=== PATIENT | female | born 1940 | race Caucasian/White ===

== ENCOUNTER 2017-06-20 14:05 | Observation (INO) | payer MEDICARE ==
[~2017-06-20] VITALS: Ht 160 cm; Wt 76.3 kg
--- NOTE | ~2017-06-20 | EKG ---
PATIENT: ONEYDA PHILLIP UNIT #: [id number] Ventricular Rate: 81 BPM Atrial Rate: 81 BPM P-R Interval: 146 ms QRS Duration: 68 ms Q-T Interval: 384 ms QTC Calculation(Bezet): 446 ms P Apison: 29 degrees Calculated R Apison: -55 degrees Calculated T Apison: 36 degrees Diagnosis Line: Normal sinus rhythm Diagnosis Line: Left axis deviation bse Diagnosis Line: Cannot rule out Inferior infarct , age Diagnosis Line: undetermined Diagnosis Line: Abnormal ECG Diagnosis Line: No previous ECGs available Diagnosis Line: Confirmed by KIARA SEN MD ([id number]) on 06/23/2017 Diagnosis Line: 1:52:32 PM INTERPRETING MD: MCKINLEY MICHAELS
--- NOTE | ~2017-06-20 | CT2 ---
[facility] A Service of [facility] RADIOLOGY TEXT RESULTS PATIENT: ONEYDA PHILLIP LOCATION: C5B 555-01 : 42 UNIT #: [id number] AGE: [address]: Ebonie Maldonado MD SEX: F ORDER DR: [id number] [facility] [address] [place] [place], [place] [address] [id number] I MR#: [id number] #: [id number] NAME: ONEYDA PHILLIP : 1940 SEX: F STUDY DATE/TIME: 06/20/2017 15:51 UNIT: C5 ROOM: [facility] STUDY DESCRIPTION: CT Abd and Pelv W Cont Attending Physician: Reena Lopez M.D. Ordering Physician: Hakan Love M.D. Primary Care Physician: No Primary Care Physician MEDICAL IMAGING REPORT This report is preliminary unless electronic signature is present EXAM Abdomen and pelvis CT with contrast 06/20/2017 INDICATIONS A 77-year-old female with nausea vomiting diarrhea 3 days, aching all over, lightheaded. TECHNIQUE Contrast-enhanced abdomen and pelvis CT was performed. We have no comparison studies. This CT exam was performed with one or more of the following radiation dose reduction techniques: automatic exposure control, adjustment of mA and/or kV according to patient size, and iterative reconstruction. FINDINGS CT abdomen: Lung bases are clear. No effusion. A small hiatal hernia. Aorta demonstrates atherosclerotic change. The spleen and right adrenal glands are normal. There are calcifications and small cysts associate with the left adrenal glands. In aggregate these measure up to 2.9 x 1.7 cm. 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 Liver demonstrates fatty infiltration. Gallbladder surgically absent. Incidental renal cysts. Kidneys are otherwise unremarkable. CT pelvis: Bladder unremarkable. Uterus within normal limits. No drainable fluid collection in the pelvis. There is diverticulosis of the colon, but no distinct CT evidence of acute diverticulitis. Appendix not identified. No secondary sign of appendicitis. There is a fat containing anterior abdominal wall hernia. No suspicious bone lesion. IMPRESSION [facility] A Service of [facility] RADIOLOGY TEXT RESULTS PATIENT: ONEYDA PHILLIP LOCATION: C5B 555-01 : 42 UNIT #: [id number] AGE: [address]: Ebonie Maldonado MD SEX: F ORDER DR: 1. No clearly acute process. No bowel obstruction drainable fluid collection or focal area inflammatory change. 2. Appendix not identified but no secondary sign of appendicitis. 3. Diverticulosis. 4. Small hiatal hernia. Dictated by... Chuckie Mcdaniels M.D. THIS IS AN ELECTRONICALLY VERIFIED REPORT Chuckie Mcdaniels M.D. at 06/21/2017 9:32 PM Sebastien TD: 06/21/2017 01:49 JOB #: [id number] MEDICAL IMAGING REPORT Page 1 of 1 COPY
--- NOTE | ~2017-06-20 | US6 ---
[facility] A Service of [facility] RADIOLOGY TEXT RESULTS PATIENT: ONEYDA PHILLIP LOCATION: [facility] 555 : 42 UNIT #: [id number] AGE: [address]: Ebonie Maldonado MD SEX: F ORDER DR: [id number] [place] [id number] [facility]. [place], [place] [address] [id number] I MR#: [id number] #: [id number] NAME: ONEYDA PHILLIP : 1940 SEX: F STUDY DATE/TIME: 06/20/2017 18:31 UNIT: [facility] ROOM: [facility] STUDY DESCRIPTION: US Abdominal Limited Attending Physician: Ebonie Maldonado M.D. Ordering Physician: Reena Lopez M.D. Primary Care Physician: Primary Care Physician No MEDICAL IMAGING REPORT This report is preliminary unless electronic signature is present EXAM Right upper quadrant ultrasound 06/20/2017 INDICATION Nausea, vomiting for 3 days, hepatitis, cholecystectomy. TECHNIQUE Sonographic imaging of the right upper quadrant was performed. Correlation is made with CT 06/20/2017. FINDINGS The pancreas was obscured by bowel gas and not seen or evaluated. There is fatty infiltration of the liver which measures 15.9 cm long axis. Liver otherwise unremarkable. The right kidney is nonobstructed and measures 11.5 cm long axis. Gallbladder surgically absent. Extrahepatic common bile duct measures 4 mm. Probable peripelvic cyst in the right kidney corresponding to cysts on CT. IMPRESSION 1. Surgical absence of the gallbladder. 2. Fatty infiltration of the liver. Dictated by... Chuckie Mcdaniels M.D. THIS IS AN ELECTRONICALLY VERIFIED REPORT Chuckie Mcdaniels M.D. at 06/21/2017 9:26 PM RACHEL/susie TD: 06/21/2017 13:53 JOB #: [id number] [facility] A Service [facility] RADIOLOGY TEXT RESULTS PATIENT: ONEYDA PHILLIP LOCATION: [facility] : 42 UNIT #: [id number] AGE: [address]: Ebonie Maldonado MD SEX: F ORDER DR: MEDICAL IMAGING REPORT Page 1 of 1 COPY
--- NOTE | ~2017-06-20 | CO ---
Unit #: [id number] #: [id number] Patient: ONEYDA CARLIN [id number] [address] [place], [place] [address] [id number] I MR#: [id number] NAME: ONEYDA CARLIN ROOM: 555 Age: 77 Sex: F Admission Date: 06/20/2017 : 1940 Attending Physician: Ebonie Maldonado M.D. Primary Care Physician: No Primary Care Physician Consultation Date: 06/22/2017 CONSULTATION REPORT REASON FOR CONSULTATION Abnormal LFTs. HISTORY OF PRESENT ILLNESS Ms. Carlin is a 77-year-old lady. She has been feeling sick since last Friday with nausea, vomiting, diarrhea, feeling sick. She has no passing out episodes. She is feeling much better now and has none of the above symptoms. She also was noted to have significantly abnormal LFTs, which are improving also. She has no previous history of liver disease. Denies any excessive vomiting. Denies any drinking and has never been told that she has any liver problems. She had gallbladder taken out long time ago. PAST MEDICAL HISTORY Noncontributory, status post cholecystectomy 15 years ago. SOCIAL HISTORY Nonsmoker and nonalcoholic. FAMILY HISTORY Noncontributory. ALLERGIES None. MEDICATIONS At home, none. REVIEW OF SYSTEMS A complete 10-point review of systems was done, which is unremarkable other than as mentioned above. PHYSICAL EXAMINATION VITAL SIGNS: Stable. Afebrile. GENERAL: No acute distress. HEENT: Pupils equal and reactive. Sclerae anicteric. Oral mucosa moist. NECK: No JVD. No lymphadenopathy. CHEST: Clear to auscultation bilaterally. CARDIOVASCULAR: Regular rate and rhythm. No murmurs. ABDOMEN: Soft, nontender, and nondistended. EXTREMITIES: Without clubbing, cyanosis, or edema. NEUROLOGIC: Intact. SKIN: Warm and dry. Unit #: [id number] #: [id number] Patient: ONEYDA CARLIN DIAGNOSTIC STUDIES LABORATORY RESULTS: AST and ALT of 362 and 740, significantly improved from yesterday, other LFTs are normal. CBC is completely normal. IMAGING STUDIES: CT abdomen shows no acute illness. Ultrasound shows fatty liver and cholecystectomy. ASSESSMENT AND PLAN The patient with acute hepatitis associated with nausea, vomiting, diarrhea looks like viral syndrome. Since then, numbers are improving. We will recommend supportive care and watching numbers closely. She is asymptomatic now and can be watched closely outpatient with serial LFTs . Hepatitis panel is pending at this time. We will review as reports become available. Thank you Dr. Lopez for this interesting consult. We will follow along. Dictated by... Soledad Pillai/nahid TD: 06/22/2017 17:48 JOB #: [id number] CONSULTATION REPORT Page 1 of 1 X Hamzah Abebe MD X CONSULTATION REPORT
--- NOTE | ~2017-06-20 | DS ---
Unit #: [id number] #: [id number] Patient: ONEYDA PHILLIP [id number] [address] [address] [id number] I MR#: [id number] NAME: ONEYDA PHILLIP ROOM: 555 Age: 77 Sex: F Admission Date: 06/20/2017 : 1940 Discharge Date: 06/22/2017 Attending Physician: Ebonie Maldonado M.D. Primary Care Physician: No Primary Care Physician DISCHARGE SUMMARY DISCHARGE DIAGNOSES 1. Acute viral hepatitis. Acute hepatitis panel pending at the time of dictation. 2. Diabetes mellitus type 2, new onset, uncontrolled. 3. Urinary tract infection with Escherichia coli. 4. Syncope, likely vasovagal. 5. Transaminitis secondary to acute viral hepatitis. 6. Hypertension. CONSULTATION Dr. Abebe. PROCEDURES None. LAB DATA Urine culture is growing E. coli. CT of the abdomen and pelvis shows no acute process. Ultrasound of the abdomen shows surgical absence of gallbladder. Fatty liver present. Hemoglobin A1c 8.9. WBC 5.9, hemoglobin 13.8, platelets 210. Liver enzymes shows AST 362, ALT 740. Troponins negative. ALLERGIES None. DISCHARGE MEDICATIONS 1. Zofran 4 mg q.6 p.r.n. nausea. 2. Diflucan 100 mg p.o. daily for 3 days. 3. Miconazole, apply topically. 4. NovoLog low dose sliding scale a.c. and h.s. 5. Keflex 500 p.o. 3x daily for 3 days. 6. Glyburide 2.5 p.o. b.i.d. HOSPITALIZATION COURSE 77-year-old admitted because of nausea, vomiting. 1. Acute viral hepatitis. Acute hepatitis panel is pending at the time of dictation. Patient is seen by Dr. Abebe. Currently tolerating Unit #: [id number] #: [id number] Patient: ONEYDA PHILLIP diet okay. No vomiting. Continue Zofran at home. The patient will see Dr. Abebe for followup for her acute hepatitis panel which was pending. 2. Diabetes mellitus type 2, new onset. Patient received sliding scale. Patient will be started on glyburide at home. Diabetic education. I will give sliding scale prescription. 3. Urinary tract infection with E. coli. Patient received Rocephin. Patient will be discharged on Keflex for 3 more days. 4. Yeast in urine, started on Diflucan. Continue with that for a few more days. Discharge home. Follow with family physician in one week time. channel marketing program manager to help with medications. Patient will have diabetic education. Dictated by... Soledad Potter/fritz TD: 06/22/2017 16:10 JOB #: [id number] DISCHARGE SUMMARY Page 1 of 1 X Ebonie Maldonado MD X DISCHARGE SUMMARY
--- NOTE | ~2017-06-20 | EKG ---
PATIENT: ONEYDA PHILLIP UNIT #: [id number] Ventricular Rate: 81 BPM Atrial Rate: 81 BPM P-R Interval: 146 ms QRS Duration: 68 ms Q-T Interval: 384 ms QTC Calculation(Bezet): 446 ms P Hurley: 29 degrees Calculated R Hurley: -55 degrees Calculated T Hurley: 36 degrees Diagnosis Line: Normal sinus rhythm Diagnosis Line: Left axis deviation Baseline wander Diagnosis Line: Cannot rule out Inferior infarct , age Diagnosis Line: undetermined Diagnosis Line: Abnormal ECG Diagnosis Line: No previous ECGs available Diagnosis Line: Reconfirmed by KIARA SEN MD ([id number]) on 06/23/2017 Diagnosis Line: 1:52:52 PM INTERPRETING MD: MCKINLEY MICHAELS
--- NOTE | ~2017-06-20 | HP ---
Unit #: [id number] #: [id number] Patient: ONEYDA PHILLIP [id number] [facility] [address]. [place], [place] [address] [id number] I MR#: [id number] NAME: ONEYDA PHILLIP ROOM: 98486 Age: 77 Sex: F Admission Date: 06/20/2017 : 1940 Attending Physician: Reena Lopez M.D. Primary Care Physician: No Primary Care Physician HISTORY AND PHYSICAL CHIEF COMPLAINT Chief complaint is nausea, vomiting, diarrhea. HISTORY OF PRESENT ILLNESS The patient is a 77-year-old female with no significant past medical history, who presented to the emergency department for evaluation of the above. The patient states that she has not been feeling well since June 18, 2017. She has had nausea, vomiting and diarrhea. She reports six to eight bouts of nonbloody emesis and four bouts of nonbloody diarrhea within the past 24 hours. She denies any abdominal pain, no fever, no cough. She has had mild rhinorrhea. She denies any shortness of breath, no chest pain, no change in her weight. She states that she does have urinary incontinence at baseline. She denies any new urinary symptoms. She also reports a syncopal episode yesterday. She denies feeling lightheaded prior to the episode. She states that she has had at least three episodes of syncope within the past month. She states that typically it occurs when she is "nervous" or when she has been emotional, specifically at funerals. In the emergency department, a CT of the abdomen and pelvis was done and showed nothing acute. Laboratory notable for findings concerning for urinary tract infection. AST and ALT are 1091 and 1197 respectively. Lipase is 20. She is being admitted to [facility] for evaluation and further treatment. She was given 1 L of normal saline as well as 4 mg of Zofran in the emergency department. PAST MEDICAL HISTORY 1. The patient denies hospitalizations within the past 10 years. 2. Cholecystectomy. SOCIAL HISTORY The patient lives with her son. She smokes a pack of cigarettes daily. She denies alcohol. 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 She typically walks without assistance. FAMILY HISTORY Family history is notable for her mother having tongue malignancy. ALLERGIES No known allergies. Unit #: [id number] #: [id number] Patient: ONEYDA PHILLIP HOME MEDICATIONS None. REVIEW OF SYSTEMS A complete review of systems is negative except as indicated in the HPI. The patient states that she took two [place] Plus tablets within the past 24 hours. She has also taken about six ibuprofen. She denies any Tylenol use. She denies any sick contacts. No recent travel or abnormal foods. The patient states that the nodule on her nose has been present for about five years. DIAGNOSTIC TESTS IMAGING: CT of the abdomen and pelvis shows nothing acute. LABORATORY: Urinalysis notable for 1+ leukocyte esterase, positive nitrite, 5 to 10 white blood cells, 1+ bacteria, yeast are present. Complete blood count notable for AST and ALT of 1091 and 1197 respectively, glucose is 222. Hemoglobin and hematocrit 16.2 and 48 respectively. PHYSICAL EXAMINATION VITAL SIGNS: Temperature is 97.5. Pulse 103. Respirations 16. Blood pressure 124/89. Oxygen saturation 97% on room air. GENERAL: The patient is a female who is awake and alert, in no acute distress. HEENT: The head is atraumatic. Mucous membranes are moist. NECK: Is supple. Trachea is midline. CARDIOVASCULAR: is regular rate and rhythm. LUNGS: Are clear to auscultation bilaterally with no increased work of breathing. ABDOMEN: is soft, nontender, with bowel sounds present in all four quadrants. She does have a reducible ventral hernia. EXTREMITIES: Are nontender with no pedal edema. NEURO: The patient is awake and alert. She follows commands. PSYCH: Mood and affect are normal. The patient is cooperative. SKIN: Of examined areas is warm and dry. The patient does have a nodule on the nose that is somewhat pearly with telangiectasias. ASSESSMENT The patient is a 77-year-old female with: 1. Acute hepatitis. The patient denies ever being told she has any kind of liver problem. 2. Syncope. I do not see that the patient has had an EKG. She has never had a cardiac workup, never had a stress test or a cardiac catheterization. 3. Urinary tract infection with no urine cultures in [facility] for comparison. 4. Hyperglycemia. The patient's glucose is 222. The patient has never been told she has diabetes. PLAN 1. Admit for observation to intermediate level. 2. N.p.o. until right upper quadrant ultrasound. 3. Normal saline at 75 mL an hour. 4. Bedrest. 5. Fall precautions. 6. Right upper quadrant ultrasound for further evaluation of elevated liver function tests. Unit #: [id number] #: [id number] Patient: ONEYDA PHILLIP 7. Hepatitis panel. 8. Consult Dr. Abebe regarding elevated liver function tests. 9. Two-D echo for further evaluation of syncope. 10. EKG and cardiac enzymes. 11. Orthostatics q. shift. 12. Fall precautions. 13. Urinalysis with culture and sensitivity. 14. Rocephin 1 g IV daily pending results of urine culture. 15. Fluconazole 200 mg p.o. daily. Again pending urine culture results. 16. Hemoglobin A1C. 17. Low dose sliding scale insulin with Accu-Cheks. 18. Repeat labs in the morning. 19. SCDs for DVT prophylaxis. 20. Additional workup and consultants based on above. Dictated by Reena Lopez M.D. BRISA/malinda TD: 06/20/2017 17:39 JOB #: [id number] HISTORY AND PHYSICAL Page 1 of 1 X Reena Lopez MD X HISTORY AND PHYSICAL
[2017-06-20 14:43] LABS: BASOPHIL# 0.1 X10e3 (0-0.3); BASOPHIL% 1.2 % (0-2.5); DIFF IND NO; EOSINOPHIL# 0.2 X10e3 (0-0.7); EOSINOPHIL% 3.3 % (0.0-7.0); HEMOGLOBIN 16.2 gm/dL (12.0-16.0); LYMPHOCYTE# 1.7 X10e3 (1.0-3.5); LYMPHOCYTE% 23.3 % (17.0-45.0); MEAN CELL VOLUME 85.4 FL (83-96); MEAN CORPUSCULAR HEMOGLOBIN 28.8 PG (28-34); MEAN CORPUSCULAR HGB CONC 33.7 g/dL (30-36); MEAN PLATELET VOLUME 8.7 FL (6.5-11.5); MONOCYTE# 0.2 X10e3 (0-1.0); MONOCYTE% 2.9 % (3.0-12.0); NEUTROPHIL# 4.9 X10e3 (1.5-7.1); NEUTROPHIL% 69.3 % (40-75); PLATELET COUNT 214 X10e3 (140-420); RED BLOOD COUNT 5.62 X10e (3.90-5.30); RED CELL DISTRIBUTION WIDTH 15.3 % (11.0-15.5); WHITE BLOOD COUNT 7.1 X10e3 (4.0-10.5)
[2017-06-20 15:19] LABS: ALBUMIN SERUM 4.1 g/dL (3.5-5.0); BILIRUBIN, DIRECT 0.3 mg/dL (0.0-0.2); BILIRUBIN,INDIRECT 0.4 mg/dL (0.0-0.9); BILIRUBIN,TOTAL 0.7 mg/dL (0.2-2.0); CREATININE SERUM 0.9 mg/dL (0.6-1.4); GLOM FILT RATE Estimated 62.6 mL/min (>60); POTASSIUM 3.6 mmol/L (3.5-5.1); PROTEIN TOTAL SERUM 7.7 g/dL (6.0-8.3)
[2017-06-20 16:22] LABS: URINE SOURCE CLEAN CATCH
[2017-06-20 16:32] LABS: URINE APPEARANCE CLEAR; URINE BILIRUBIN NEG (NEG); URINE BLOOD NEG (NEG); URINE COLOR YELLOW; URINE GLUCOSE NEG (NEG); URINE KETONE NEG (NEG); URINE LEUKOCYTE ESTERASE 1+ (NEG); URINE NITRATE POS (NEG); URINE PROTEIN NEG (NEG)
[2017-06-20 16:34] LABS: CULTURE INDICATED? YES; U HYALINE CASTS AUWI 0-2 /[LPF]; URINE BACTERIA AUWI 1+ (NEGATIVE); URINE SQUAMOUS EPITHELIAL CELL OCC /[HPF]
[2017-06-20] MEDS ORDERED: NO MEDICATIONS (16:42)
[2017-06-20 16:43] LABS: URINE YEAST PRESENT
[2017-06-20 20:01] LABS: %MB 6.2 % (0.0-4.0); MB 3.8 ng/ml
[2017-06-21 00:16] LABS: %MB 5.7 % (0.0-4.0); MB 3.8 ng/ml
[2017-06-21 06:35] LABS: BASOPHIL# 0.1 X10e3 (0-0.3); BASOPHIL% 1.3 % (0-2.5); EOSINOPHIL# 0.5 X10e3 (0-0.7); EOSINOPHIL% 8.5 % (0.0-7.0); HEMATOCRIT 41.9 % (35.0-45.0); LYMPHOCYTE# 2.1 X10e3 (1.0-3.5); LYMPHOCYTE% 36.3 % (17.0-45.0); MEAN CELL VOLUME 86.2 FL (83-96); MEAN CORPUSCULAR HEMOGLOBIN 28.5 PG (28-34); MEAN PLATELET VOLUME 9.1 FL (6.5-11.5); MONOCYTE# 0.2 X10e3 (0-1.0); NEUTROPHIL% 49.9 % (40-75); PLATELET COUNT 210 X10e3 (140-420); RED BLOOD COUNT 4.86 X10e (3.90-5.30); RED CELL DISTRIBUTION WIDTH 15.3 % (11.0-15.5); WHITE BLOOD COUNT 5.9 X10e3 (4.0-10.5)
[2017-06-21 07:07] LABS: CK TOTAL 58 IU/L (26-140)
[2017-06-21 07:28] LABS: ALBUMIN SERUM 3.1 g/dL (3.5-5.0); BILIRUBIN,TOTAL 0.7 mg/dL (0.2-2.0); BUN/CREATININE RATIO 16.25; CALCIUM SERUM 8.2 mg/dL (8.4-10.2); CREATININE SERUM 0.8 mg/dL (0.6-1.4); GLOM FILT RATE Estimated 72.2 mL/min (>60); POTASSIUM 4.1 mmol/L (3.5-5.1); PROTEIN TOTAL SERUM 5.9 g/dL (6.0-8.3)
[2017-06-21 07:32] LABS: HEMOGLOBIN 13.8 gm/dL (12.0-16.0)
[2017-06-21 07:33] LABS: DIFF IND NO
[2017-06-22] MEDS ORDERED: DIFLUCAN100 MG PO (14:28)
[2017-06-22] MEDS ORDERED: ACCUCHECK MACHINE (14:29)
[2017-06-22] MEDS ORDERED: ZOFRAN PO (14:29)
[2017-06-22] MEDS ORDERED: [UNRECOGNIZED DRUG - SUPPLY] (14:30)
[2017-06-22] MEDS ORDERED: GLYBURIDE2.5 MG PO (14:31)
[2017-06-22] MEDS ORDERED: NOVOLOG100 UNITS/ SUBQ (14:31)
[2017-06-24 22:59] LABS: HA AB IGM (HEPPAN) Nonreactive (()); HB CORE AB IGM (HEPPAN) Nonreactive (Nonreactive); HB S AG (HEPPAN) Nonreactive (Nonreactive); HEP C AB (HEPPAN) Nonreactive (Nonreactive); HEP C AB SIGNAL TO CUTOFF 0.01 ratio (<1.00)
== END 2017-06-22 15:24 | disposition home or self-care (01) ==
LOC: CED 14:05 → CEDOF 17:10 → CED 17:22 → CEDOF 17:22 → C5B 19:45
PROVIDERS: Emergency Medicine; Family Medicine
DX: B17.9 Acute viral hepatitis, unspecified (principal); I10 Essential (primary) hypertension; E11.65 Type 2 diabetes mellitus with hyperglycemia; N39.0 Urinary tract infection, site not specified; B96.20 Unspecified Escherichia coli [E. coli] as the cause of diseases classified elsewhere; R55 Syncope and collapse; F17.210 Nicotine dependence, cigarettes, uncomplicated; Z79.4 Long term (current) use of insulin; Z79.899 Other long term (current) drug therapy; Z90.49 Acquired absence of other specified parts of digestive tract
CPT/HCPCS: 36415; 74177; 76705; 80048; 80053; 80074; 80076; 81003; 82550; 82553; 82947; 83036; 83690; 84484; 85025; 87086; 87088; 87186; 93005; 93306; 96361; 96374; 96375; 99285; G0378; J0696; J1815; J2405; Q9967